=== PATIENT | male | born 1970 | race Caucasian/White ===

== ENCOUNTER 2017-01-01 08:40 | Emergency (ER) | payer MEDICAID ==
[2017-01-01] MEDS ORDERED: DEXAMETHASONE 4 MG/ML VIAL IM ONE (09:04)
--- NOTE | 2017-01-01 09:08 | EDPHY ---
H & P Stated Complaint: rash/st post increeasing dose of lamictal 1 wk/increasing rash Time Seen by Provider: 01/01/17 08:55 HPI/ROS: CHIEF COMPLAINT: Rash HISTORY OF PRESENT ILLNESS: The patient is a 46-year-old man who comes to the emergency department requesting steroids for a Lamictal rash. He states that he has been gradually increasing his Lamictal dose over the last month with his psychiatrist Dr. méndez. For the last 5 days he increased from 100-200 mg per day. He has not developed a sandpapery diffuse rash. It is itchy. He denies shortness of breath or swelling headache. He denies chest pain. He denies diaphoresis or fevers. No mucosal lesions. REVIEW OF SYSTEMS: Constitutional: denies: chills, fever, recent illness, recent injury EENTM: denies: blurred vision, double vision, nose congestion Respiratory: denies: cough, shortness of breath Cardiac: denies: chest pain, irregular heart rate, lightheadedness, palpitations Gastrointestinal/Abdominal: denies: abdominal pain, diarrhea, nausea, vomiting, blood streaked stools Genitourinary: denies: dysuria, frequency, hematuria, pain Musculoskeletal: denies: joint pain, muscle pain Skin: See HPI Neurological: denies: headache, numbness, paresthesia, tingling, dizziness, weakness Hematologic/Lymphatic: denies: blood clots, easy bleeding, easy bruising Immunologic/allergic: denies: HIV/AIDS, transplant EXAM: GENERAL: Well-appearing, well-nourished and in no acute distress. HEAD: Atraumatic, normocephalic. EYES: Pupils equal round and reactive to light, extraocular movements intact, sclera anicteric, conjunctiva are normal. ENT: TMs normal, nares patent, oropharynx clear without exudates. Moist mucous membranes. NECK: Normal range of motion, supple without lymphadenopathy or JVD. LUNGS: Breath sounds clear to auscultation bilaterally and equal. No wheezes rales or rhonchi. HEART: Regular rate and rhythm without murmurs, rubs or gallops. ABDOMEN: Soft, nontender, normoactive bowel sounds. No guarding, no rebound. No masses appreciated. BACK: No CVA tenderness, no spinal tenderness, step-offs or deformities EXTREMITIES: Normal range of motion, no pitting or edema. No clubbing or cyanosis. NEUROLOGICAL: Cranial nerves II through XII grossly intact. Normal speech, normal gait. 5/5 strength, normal movement in all extremities, normal sensation PSYCH: Normal mood, normal affect. SKIN: Diffuse macular rash over trunk and scalp. Pruritic, nonblanching Source: Patient Exam Limitations: No limitations - Personal History Current Tetanus/Diphtheria Vaccine: Yes - Medical/Surgical History Hx Asthma: No Hx Chronic Respiratory Disease: No Hx Diabetes: No Hx Cardiac Disease: No Hx Renal Disease: No Hx Cirrhosis: No Hx Alcoholism: No Hx HIV/AIDS: No Hx Splenectomy or Spleen Trauma: No Other PMH: mood disorder - Family History Significant Family History: No pertinent family hx - Social History Smoking Status: Never smoked Alcohol Use: Sober Drug Use: None Constitutional: Initial Vital Signs Temperature (C) 36.6 C 01/01/17 08:43 Heart Rate 74 01/01/17 08:43 Respiratory Rate 16 01/01/17 08:43 Blood Pressure 144/104 H 01/01/17 08:43 O2 Sat (%) 96 01/01/17 08:43 O2 Delivery Mode Room Air Allergies/Adverse Reactions: lamotrigine [From Lamictal] Allergy (Verified 01/01/17 08:42) Home Medications: Medication Instructions Recorded LaMICtal 01/01/17 predniSONE 60 mg PO DAILY #15 tab 01/01/17 Medical Decision Making ED Course/Re-evaluation: The patient has Lamictal rash. He is requesting steroids. This was advised by his psychiatrist. I will give him a dose here as well as a prescription. He is discontinue the Lamictal. He has been taking antihistamines at home and will continue to do so. He declines them here. Differential Diagnosis: Partial list of the Differential diagnosis considered include but were not limited to; Lamictal rash, allergic reaction and although unlikely based on the history and physical exam, I also considered Ibarra Sheldon's, toxic epidermal necrolysis. I discussed these differential diagnoses and the plan with the patient as well as the usual and expected course. The patient understands that the diagnosis is provisional and that in medicine we are not always correct and that further workup is often warranted. Usual and customary warnings were given. All of the patient's questions were answered. The patient was instructed to return to the emergency department should the symptoms at all worsen or return, otherwise to followup with the physician as we discussed. Departure - Departure Disposition: Home, Routine, Self-Care Clinical Impression: Adverse effect of drug Condition: Fair Instructions: Prednisone (By mouth) Referrals: Jasiel Mckeon MD [Primary Care Provider] - As per Instructions Prescriptions: predniSONE 60 mg PO DAILY #15 tab
[2017-01-01] MEDS ORDERED: DEXAMETHASONE 10 MG/ML VIAL ONE (09:09)
[2017-01-01 09:50] VITALS: BP 142/91; PULSE 75; RESP 18; TEMP 98.8; O2SAT 97
== END 2017-01-01 09:49 | disposition home or self-care (01) ==
DX: R21 Rash and other nonspecific skin eruption (principal); T42.6X5A Adverse effect of other antiepileptic and sedative-hypnotic drugs, initial encounter